=== PATIENT | male | born 1980 | race Two or more races ===

== ENCOUNTER 2022-01-30 19:43 | Emergency (ER) | payer OTHER ==
[~2022-01-30] VITALS: Ht 180.3 cm; Wt 108.9 kg
[~2022-01-30 19:43] MED LIST: NO TOMA MEDICAMENTO
[2022-01-31] MEDS ORDERED: INTESTINEX680 M1 PO (06:02)
[2022-01-31] MEDS ORDERED: ZOFRAN8 MG PO (06:02)
[2022-01-31] MEDS ORDERED: PEPCID40 MG PO (06:02)
== END 2022-01-31 06:13 ==
LOC: ER 19:43
DX: A08.4 Viral intestinal infection, unspecified (principal)

== ENCOUNTER 2023-06-24 14:13 | Emergency (ER) | payer OTHER ==
[~2023-06-24] VITALS: Ht 193 cm; Wt 111.1 kg
[~2023-06-24 14:13] MED LIST changes: +INTESTINEX680 M1 PO; +PEPCID40 MG PO; +ZOFRAN8 MG PO
[2023-06-24 18:33] LABS: HEMATOCRIT 40.5 % (39.0-48.0); HEMOGLOBIN 13.2 g/dL (13-16.00); MEAN CELL VOLUME 92.3 fL (80.0-100.00); MEAN CORPUSCULAR HEMOGLOBIN 30.1 pg (27.00-32.0); MEAN CORPUSCULAR HGB CONC 32.7 g/dl (32.0-36.0); PLATELET COUNT 249 K/uL (150-450); RED BLOOD COUNT 4.39 M/uL (4.00-6.00); RED CELL DISTRIBUTION WIDTH 13.5 % (11.5-14.5)
== END 2023-06-24 19:28 | disposition home or self-care (01) ==
LOC: ER 14:13
PROVIDERS: General Practice
DX: B34.9 Viral infection, unspecified (principal); Z20.822 Contact with and (suspected) exposure to COVID-19